=== PATIENT | female | born 1970 | race Two or more races ===

== ENCOUNTER 2018-10-27 07:56 | Observation (INO) | payer BC ==
[~2018-10-27] VITALS: Ht 157.5 cm; Wt 60.0 kg
[2018-10-27 08:09] VITALS: BP 128/90
[2018-10-27 09:51] LABS: HEMATOCRIT 40.1 % (37.0-47.0); HEMOGLOBIN 12.9 g/dl (12.0-16.0); IMMATURE GRANULOCYTES 0.6 % (0.0-5.0); MEAN CELL VOLUME 80.4 fL CALC (80.0-100.0); MEAN CORPUSCULAR HGB 25.9 pG CALC (26.0-32.0); MEAN CORPUSCULAR HGB CONC 32.2 g/L CALC (32.0-36.0); NEUT# 3.84 thou/uL (2.00-7.15); RED BLOOD COUNT 4.99 mill/uL (4.20-5.60); RED CELL DISTRI WIDTH 18.6 % (11.5-15.5)
[2018-10-27 10:01] LABS: ANION GAP 17 (6-22 (CALC)); BUN 12 mg/dL (7-17); BUN/CREATININE RATIO 19 (12-20 (CALC)); CARBON DIOXIDE 26 mmol/l (22-30); CHLORIDE 102 mmol/l (95-108); CREATININE 0.6 mg/dL (0.5-1.0); GFR > 60 ML/MIN (>=60 (CALC)); GFR FOR AFR.AMER. > 60 ML/MIN (>=60 (CALC)); POTASSIUM 4.2 mmol/l (3.5-5.1); SODIUM 140 mmol/l (137-146)
[2018-10-27 13:01] LABS: URINE BILIRUBIN - DIPSTICK NEGATIVE (NEGATIVE); URINE BLOOD DIPSTICK TRACE-LYSED (NEGATIVE); URINE CLARITY CLEAR; URINE COLOR YELLOW; URINE GLUCOSE - DIPSTICK NEGATIVE (NEGATIVE); URINE KETONE NEGATIVE (NEGATIVE); URINE LEUK ESTERASE NEGATIVE (Negative); URINE NITRITE - DIPSTICK NEGATIVE (Negative); URINE PROTEIN - DIPSTICK NEGATIVE (NEG-TRACE); URINE UROBILINOGEN - DIPSTICK 0.2 E.U./dL (0.2)
[2018-10-27 15:51] VITALS: BP 119/74
[2018-10-27] MEDS ORDERED: FERREX 150150 MG PO (16:44)
[2018-10-27] MEDS ORDERED: METFORMIN500 M2 PO (16:44)
[2018-10-27] MEDS ORDERED: PANTOPRAZOLE SO40 M1 PO (16:45)
== END 2018-10-27 18:10 | disposition home or self-care (01) | DRG 812 ==
LOC: MS2 07:56
PROVIDERS: ADMIT Internal Medicine Geriatric Medicine; ATTEND Internal Medicine Geriatric Medicine
DX: D64.9 Anemia, unspecified (principal); E11.9 Type 2 diabetes mellitus without complications; I10 Essential (primary) hypertension; F41.9 Anxiety disorder, unspecified; K21.9 Gastro-esophageal reflux disease without esophagitis; K27.9 Peptic ulcer, site unspecified, unspecified as acute or chronic, without hemorrhage or perforation
CPT/HCPCS: G0378; G0379

== ENCOUNTER 2020-08-15 14:27 | Emergency (ER) | payer OTHER, BC ==
[~2020-08-15] VITALS: Ht 157.5 cm; Wt 54.0 kg
[~2020-08-15 14:27] MED LIST: FERREX 150150 MG PO; METFORMIN500 M2 PO; PANTOPRAZOLE SO40 M1 PO
[2020-08-15] MEDS ORDERED: NAPROXEN500 MG PO (17:04)
[2020-08-15 17:17] VITALS: BP 159/80
== END 2020-08-15 17:22 | disposition home or self-care (01) | DRG 605 ==
LOC: ED 14:27
DX: S20.214A Contusion of middle front wall of thorax, initial encounter (principal); S80.212A Abrasion, left knee, initial encounter; S90.811A Abrasion, right foot, initial encounter; R73.03 Prediabetes; V47.5XXA Car driver injured in collision with fixed or stationary object in traffic accident, initial encounter; Z79.84 Long term (current) use of oral hypoglycemic drugs

== ENCOUNTER 2020-08-20 09:14 | Emergency (ER) | payer OTHER, BC ==
[~2020-08-20] VITALS: Ht 157.5 cm; Wt 70.0 kg
[~2020-08-20 09:14] MED LIST changes: +NAPROXEN500 MG PO
[2020-08-20 10:14] LABS: IMMATURE GRANULOCYTES 0.4 % (0.0-5.0); MEAN CORPUSCULAR HGB 27.7 pG CALC (26.0-32.0); MEAN CORPUSCULAR HGB CONC 31.5 g/dL CAL (32.0-36.0); NEUT# 3.15 thou/uL (2.00-7.15); RED BLOOD COUNT 3.82 mill/uL (4.20-5.60); RED CELL DISTRI WIDTH 12.8 % (11.5-15.5)
[2020-08-20 10:15] LABS: HEMATOCRIT 33.7 % (37.0-47.0); HEMOGLOBIN 10.6 g/dl (12.0-16.0); MEAN CELL VOLUME 88.2 fL CALC (80.0-100.0)
[2020-08-20 10:30] LABS: ALBUMIN 3.8 g/dL (3.2-5.0); ALKALINE PHOSPHATASE 47 u/l (38-126); ANION GAP 10 (6-22 (CALC)); BILIRUBIN, TOTAL 0.5 mg/dL (0.0-1.4); BUN 18 mg/dL (7-17); BUN/CREATININE RATIO 28 (12-20 (CALC)); CARBON DIOXIDE 27 mmol/l (22-30); CHLORIDE 107 mmol/l (95-108); CREATININE 0.6 mg/dL (0.5-1.0); GFR > 60 ML/MIN (>=60 (CALC)); GFR FOR AFR.AMER. > 60 ML/MIN (>=60 (CALC)); LIPASE 198 u/l (23-300); SGOT/AST 33 u/l (14-36); SODIUM 140 mmol/l (137-146); TOTAL PROTEIN 6.6 g/dL (6.3-8.2)
[2020-08-20 10:55] VITALS: BP 137/63
== END 2020-08-20 10:55 | disposition left against medical advice (07) | DRG 605 ==
LOC: ED 09:14
PROVIDERS: Family Medicine
DX: S30.1XXA Contusion of abdominal wall, initial encounter (principal); S80.02XA Contusion of left knee, initial encounter; E11.9 Type 2 diabetes mellitus without complications; V47.5XXA Car driver injured in collision with fixed or stationary object in traffic accident, initial encounter; Z79.84 Long term (current) use of oral hypoglycemic drugs; Z91.19 Patient's noncompliance with other medical treatment and regimen